=== PATIENT | female | born 1995 | race Caucasian/White ===

== ENCOUNTER 2022-01-21 14:02 | Emergency (ER) | payer OTHER ==
[2022-01-21] MEDS ORDERED: MORPHINE 4 MG/ML SYR ONE (16:02)
[2022-01-21] MEDS ORDERED: MORPHINE 2 MG/ML SYR ONE (16:02)
--- NOTE | 2022-01-21 16:58 | RAD REPORT ---
EXAM DESCRIPTION: RAD - Tib Fib Right - 01/21/2022 4:52 pm CLINICAL HISTORY: PAIN COMPARISON: No comparisons FINDINGS: External fixator device is in place. No loosening seen. No acute finding demonstrated.
--- NOTE | 2022-01-21 16:59 | RAD REPORT ---
EXAM DESCRIPTION: RAD - Foot Right 2 View - 01/21/2022 4:52 pm CLINICAL HISTORY: PAIN COMPARISON: No comparisons FINDINGS: External fixator device is noted. K-wires are present in the toes. No acute process demons trated.
--- NOTE | 2022-01-21 17:40 | EDPHYS ---
Physician Documentation [facility] Name: Rin Arce Age: 26 yrs Sex: Female : 1995 Arrival Date: 01/21/2022 Time: 14:03 Bed 9 Private MD: ED Physician Sidney Preez HPI: 01/21 14:22 This 26 yrs old Female presents to ER via Wheelchair with complaints of Wound Check - cp foot bleeding. 14:22 The patient presents with an injury, bleeding from surgical wounds of right lower leg. cp 14:22 Context: resulted from a direct blow, against knee scooter. Onset: The symptoms/episode cp began/occurred just prior to arrival. 14:22 Patient reports having surgery on right ankle and right foot yesterday [place]. Patient reports accidently striking right ankle against knee scooter and then noticing bleeding from surgical wounds. 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 - Social history:: Smoking status: Patient denies any tobacco usage or history of. Patient uses alcohol, occasionally. ROS: 14:25 Constitutional: Negative for body aches, chills, fever, poor PO intake. cp 14:25 Eyes: Negative for injury, pain, redness, and discharge. cp 14:25 Neck: Negative for pain with movement, pain at rest, stiffness. 14:25 Cardiovascular: Negative for chest pain, edema, palpitations. 14:25 Respiratory: Negative for cough, shortness of breath, wheezing. 14:25 Abdomen/GI: Negative for abdominal pain, nausea, vomiting, and diarrhea. 14:25 Back: Negative for pain at rest, pain with movement. 14:25 MS/extremity: Positive for pain, of the right ankle and right foot. 14:25 Neuro: Negative for altered mental status, dizziness, headache, numbness, weakness. 14:25 All other systems are negative. Exam: 14:30 Constitutional: The patient appears in no acute distress, alert, awake, non-toxic, well cp developed, well nourished, obese, uncomfortable. 14:30 Head/Face: Normocephalic, atraumatic. cp 14:30 Chest/axilla: Inspection: normal. 14:30 Cardiovascular: Rate: tachycardic, Rhythm: regular. 14:30 Respiratory: the patient does not display signs of respiratory distress, Respirations: normal, no use of accessory muscles, no retractions, labored breathing, is not present, Breath sounds: are clear throughout, no decreased breath sounds, no stridor, no wheezing. 14:30 Abdomen/GI: Exam negative for discomfort, distension, guarding, Inspection: abdomen appears normal. 14:30 Back: pain, is absent, ROM is normal. 14:30 Musculoskeletal/extremity: Extremities: noted in the right foot and right ankle: external fixation device in place, surgical dressing removed and surgical wounds appear with no active bleeding noted, mild swelling with signs of infection noted. 14:30 Neuro: Orientation: to person, place \T\ time. Mentation: is normal. Vital Signs: 14:14 BP 109 / 75; Pulse 113; Resp 17; Temp 98.9; Pulse Ox 100% ; Weight 108.86 kg; Height 5 ap3 ft. 9 in. (175.26 cm); 17:01 BP 109 / 71; Pulse 82; Resp 16; Pulse Ox 98% on R/A; eh3 14:14 Body Mass Index 35.44 (108.86 kg, 175.26 cm) ap3 MDM: 15:26 Patient medically screened. cp 17:37 Data reviewed: vital signs, nurses notes, radiologic studies, plain films. Test cp interpretation: by ED physician or midlevel provider: plain radiologic studies. Counseling: I had a detailed discussion with the patient and/or guardian regarding: the historical points, exam findings, and any diagnostic results supporting the discharge/admit diagnosis, radiology results, the need for outpatient follow up, surgeon, to return to the emergency department if symptoms worsen or persist or if there are any questions or concerns that arise at home. Response to treatment: the patient's symptoms have markedly improved after treatment, and as a result, I will discharge patient. 01/21 15:37 Order name: XRAY Tib Fib RIGHT; Complete Time: 17:04 cp 01/21 17:04 Interpretation: Report reviewed. 01/21 15:37 Order name: XRAY Foot RIGHT 2 View; Complete Time: 17:04 01/21 17:04 Interpretation: Report reviewed. cp 01/21 17:27 Order name: Wound dressing; Complete Time: 17:53 cp 01/21 17:27 Order name: Wyatt Wrap; Complete Time: 17:53 cp Administered Medications: 16:32 Drug: morphine 10 mg Route: IM; Site: right deltoid; ld1 17:57 Follow up: Response: No adverse reaction eh3 Disposition: 18:51 Co-signature as Attending Physician, Sidney Perez MD. rn Disposition Summary: 01/21/22 17:39 Discharge Ordered Location: Home cp Problem: new cp Symptoms: have improved cp Condition: Stable cp Diagnosis - Encounter for attention to dressings, sutures and drains cp Followup: cp - With: Private Physician - When: 1 - 2 days - Reason: Recheck today's complaints Discharge Instructions: - Discharge Summary Sheet cp - Uncontrolled Wound Bleeding cp Forms: - Medication Reconciliation Form cp - Thank You Letter cp - Antibiotic Education cp - Prescription Opioid Use cp Signatures: Dispatcher [employer] EDSidney Morrissey MD MD rn Page, Corey, PA PA cp Mishel Walsh RN RN ap3 Chapis Spaulding RN RN ld1 Nicolasa Paris 3
--- NOTE | 2022-01-21 17:40 | ER ---
Nurse's Notes [facility] Name: Rin Arce Age: 26 yrs Sex: Female : 1995 Arrival Date: 01/21/2022 Time: 14:03 Bed 9 Private MD: Diagnosis: Encounter for attention to dressings, sutures and drains Presentation: 01/21 14:14 Chief complaint: Patient states: she had surgery last night in [place] on her right foot ap3 involving external fixation devices. Patient reports that her surgeon was going to call up here to speak with a provider. Patient states she bumped into something to make her surgical area bleed. Coronavirus screen: At this time, the client does not indicate any symptoms associated with coronavirus-19. Ebola Screen: No symptoms or risks identified at this time. Initial Sepsis Screen: Does the patient meet any 2 criteria? No. Patient's initial sepsis screen is negative. Does the patient have a suspected source of infection? No. Patient's initial sepsis screen is negative. Risk Assessment: Do you want to hurt yourself or someone else? Patient reports no desire to harm self or others. Onset of symptoms was January 21, 2022. 14:14 Method Of Arrival: Wheelchair ap3 14:14 Acuity: PERRY 4 ap3 Triage Assessment: 14:16 General: Appears uncomfortable, Behavior is calm, cooperative. Pain: Complains of pain ap3 in right foot Pain began suddenly, 1 day ago. Neuro: Level of Consciousness is awake, alert, obeys commands, Oriented to person, place, time, situation. Cardiovascular: Patient's skin is warm and dry. Respiratory: Airway is patent Respiratory effort is even, unlabored, Respiratory pattern is regular, symmetrical. Derm: Wound noted right foot. Musculoskeletal: Range of motion: limited in right ankle. 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 - Social history:: Smoking status: Patient denies any tobacco usage or history of. Patient uses alcohol, occasionally. Screenin:18 Abuse screen: Denies threats or abuse. Nutritional screening: No deficits noted. ap3 Tuberculosis screening: No symptoms or risk factors identified. 17:56 Fall Risk None identified. eh3 Vital Signs: 14:14 BP 109 / 75; Pulse 113; Resp 17; Temp 98.9; Pulse Ox 100% ; Weight 108.86 kg; Height 5 ap3 ft. 9 in. (175.26 cm); 17:01 BP 109 / 71; Pulse 82; Resp 16; Pulse Ox 98% on R/A; eh3 14:14 Body Mass Index 35.44 (108.86 kg, 175.26 cm) ap3 ED Course: 14:03 Patient arrived in ED. am2 14:10 Ryland Parks PA is PHCP. cp 14:10 Sidney Perez MD is Attending Physician. cp 14:16 Triage completed. ap3 14:18 Arm band placed on right wrist. ap3 15:24 Nicolasa Paris is Primary Nurse. eh3 16:54 XRAY Tib Fib RIGHT In Process Unspecified. EDMS 16:54 XRAY Foot RIGHT 2 View In Process Unspecified. EDMS 17:56 Patient has correct armband on for positive identification. Bed in low position. Call eh3 light in reach. Side rails up X2. 17:56 No provider procedures requiring assistance completed. eh3 18:02 Patient did not have IV access during this emergency room visit. eh3 Administered Medications: 16:32 Drug: morphine 10 mg Route: IM; Site: right deltoid; ld1 17:57 Follow up: Response: No adverse reaction eh3 Medication: 17:56 VIS not applicable for this client. eh3 Outcome: 17:39 Discharge ordered by . cp 17:57 Discharged to home via wheelchair. eh3 17:57 Condition: stable 17:57 Discharge instructions given to patient, family, Instructed on discharge instructions, follow up and referral plans. 18:02 Patient left the ED. eh3 Signatures: Dispatcher [employer] EDMS Ryland Parks PA PA cp Moreno, Amanda am2 Mishel Walsh RN RN ap3 Chapis Spaulding RN RN ld1 Nicolasa Paris eh3
[2022-01-21 18:34] VITALS: TEMP 98.9
[2022-01-21 18:36] VITALS: BP 109/71; O2SAT 98
== END 2022-01-21 18:02 | disposition home or self-care (01) ==
LOC: ER 14:02
DX: Z48.01 Encounter for change or removal of surgical wound dressing (principal)
CPT/HCPCS: 73620; 73590; 96372; 99283; J2270

== ENCOUNTER 2022-04-01 12:07 | Emergency (ER) | payer SELFPAY ==
--- OUTSIDE RECORDS SUMMARY | 2022-04-01 12:10 | XMS REPORT | Continuity of Care Document ---
:1995 Author Organization [facility] t Address [address] [place] [address] Care Team Providers Name Role Phone Alton RODRIGUEZ, Key Vazquez Primary Care Physician [phone] MILTON DIETZ Attending Clinician Unavailable KEY DANG Attending Clinician Unavailable MILTON DIETZ Attending Clinician Unavailable Key Dang MD Attending Clinician [phone] Payers Payer Name Policy Type Policy Number Effective Date Expiration Date S quan [facility] [id number] 2021 00:00:00 [facility] 3 [id number] 2021 00:00:00 Problems Condition Condition Condition Status Onset Resolution Last Treating Co mments Source Name Details Category Date Date Treatment Clinician Date No known No known Disease [place] active active Health problems problems Allergies, Adverse Reactions, Alerts This patient has no known allergies or adverse reactions. Social History Social Habit Start Date Stop Date Quantity Comments Source History [facility] Health Alcohol Frequency History [facility] Alcohol Std Drinks History [facility] Alcohol Binge History of tobacco Cigarette Smoker [facility] use Exposure to 2022-03-02 2022-03-12 Not sure [facility] SARS-CoV-2 (event) 00:00:00 10:09:00 Alcohol intake 2022-03-12 2022-03-12 0 /d [facility] 00:00:00 00:00:00 Tobacco use and 2021-12-11 2021-12-11 Smokeless tobacco [facility] exposure 00:00:00 00:00:00 non-user Alcohol Comment 2021-12-11 2021-12-11 Social drinker [facility] 00:00:00 00:00:00 only Cigarette 2021-12-11 2021-12-11 [facility] pack-years 00:00:00 00:00:00 Sex Ass[birth year] At [birth year] Jacquie Valencia ybold 00:00:00 00:00:00 Smoking Status Start Date Stop Date Source Never smoked tobacco [facility] Medications Ordered Filled Start Stop Current Ordering Indication Dosage Frequency Signature Comments Components Source Medication Medication Date Date Medication? Clinician (SIG) Name Name fluconazole 2021- Yes [id number] 150mg Take 1 [facility] (Diflucan) 03-12 9107 tablet Health 150 MG 00:00: 04:59 (150 mg tablet 00 :00 total) by mouth 1 (one) time for 1 dose. cephalexin 2021- Yes [id number] 500mg Q6H Take 1 [facility] (Keflex) 03-05 9107 capsule Health 500 MG 00:00: 04:59 (500 mg capsule 00 :00 total) by mouth every 6 (six) hours for 14 days. No known No No known [facility] 8-17 medication He alth 13:12: s 13 No known 0 No No known [facility] 8-10 medication He alth 08:57: s 50 No known 2021-0 No No known [facility] 7-27 medication He alth 10:12: s 08 No known 0 No No known [facility] 7-20 medication He alth 13:28: s 43 Calcium Yes Jacquie Carb-Cholec 5-26 Seybold alciferol 09:26: (CALCIUM 44 1000 + D OR) Cetirizine Yes 10mg Take 10 mg K elsey 10 MG oral 5-26 by mouth Seybo ld Tablet 09:26: nightly 44 Esomeprazol Yes 20mg Take 20 mg Jacquie e Magnesium 5-26 by mouth Seyb old 20 MG oral 09:26: every Delayed 44 morning Release (before Capsule breakfast) Ketoconazol 2022-0 Yes QD Apply 1 Candido sey e 2 % apply 5-26 applicatio Se ybold externally 09:26: n Cream 44 topically daily as needed Multiple Yes 1{tbl} Take 1 Kelse y Vitamins-Mi 5-26 tablet by Sey bold nerals 09:26: mouth (Thera-M) 44 daily oral Tablet Propranolol Yes 10mg Take 10 mg Jacquie HCl 10 MG 5-26 by mouth 3 Seyb old oral Tablet 09:26: times 44 daily Turmeric Yes 500mg Take 500 Munira ey Curcumin 5-26 mg by Seybold 500 MG oral 09:26: mouth Capsule 44 daily Albuterol Yes 2{puff} Inhale 2 K elsey HFA 108 (90 5-26 puffs into Se ybold Base) 09:26: the lungs MCG/ACT IN 44 AERS B Yes Jacquie COMPLEX-BIO 5-26 Seybold TIN-FA ER 09:26: OR 44 busPIRone Yes 10mg Take 10 mg Ke lsey HCl 10 MG 5-24 by mouth Seybol d oral Tablet 00:00: in the 00 morning and 10 mg in the evening. Duloxetine Yes 60mg Take 60 mg K elsey HCl 60 MG 5-24 by mouth Seybol d oral Cap DR 00:00: daily Particles 00 Nortriptyli Yes Take 1 tab Jacquie ne HCl 10 3-07 nightly Seybold MG oral 00:00: for 1 Capsule 00 week, then 2 tabs nightly for one week, then 3 tabs nightly Gabapentin Yes 600mg Take 600 Ke lsey 300 MG oral 2-09 mg by Seybold Capsule 00:00: mouth 00 nightly Sumatriptan Yes 100mg Take 100 K elsey Succinate 8-31 mg by Seybold 100 MG oral 00:00: mouth once Tablet 00 as needed Immunizations Ordered Immunization Filled Immunization Date Status Commen ts Source Name Name Covid-19 Vaccine 2020-10-15 Completed Jacquie almonte Moderna (Spikevax), 00:00:00 Mrna-lnp, Josue Protein, Pf Tdap- (Boostrix, 2017-09-28 Completed Jacquie almonte Adacel) 00:00:00 Vital Signs Vital Name Observation Time Observation Value Comments Source Body height 2021-12-11 15:15:00 177.8 cm [facility] Body weight 2021-12-11 15:15:00 113.399 [facility] BMI 2021-12-11 15:15:00 35.87 kg/m2 [facility] Systolic blood pressure 2021-12-05 14:32:00 84 mm[Hg] Jacquie Seybold Diastolic blood 2021-12-05 14:32:00 48 mm[Hg] Kelse y Seybold pressure Heart rate 2021-12-05 14:18:00 103 /min Jacquie paulabodee Body temperature 2021-12-05 14:18:00 35.56 Yahaira Munira ey Seybold Respiratory rate 2021-12-05 14:18:00 14 /min Munira paula Seybold Body height 2021-12-05 14:18:00 175.3 cm Jacquie paulabodee Body weight 2021-12-05 14:18:00 108.863 kg Jacquie paulabodee BMI 2021-12-05 14:18:00 35.44 kg/m2 Jacquie paulabodee Procedures Procedure Date / Time Performed Performing Clinician Sour e CAST APPLICATION 2022-03-12 21:48:17 Maurice Chairez [facility] Encounters Start End Encounter Admission Attending Care Care Encounter Source Date/Time Date/Time Type Type Clinicians Facility Department ID 2022-03-[address] [facility] [id number] [place] 12:14:47 [id number] [facility] 2022-02-[address] [facility] [id number] [place] 09:00:08 [id number] [facility] 2022-02-[address] [facility] [id number] [place] 11:09:26 [id number] [facility] 2022-02-[address] [facility] [id number] [place] 14:25:43 [id number] [facility] 2022-02-[address] [facility] [id number] [place] 09:45:35 [id number] [facility] 2022-02-[address] [facility] [id number] [place] 01:04:44 [id number] [facility] 2022-01-29 [id number] [place] 13:18:36 [place] [id number] [facility] 2022-01-28 Outpatient SHAWANDA [facility] [id number] [place] 08:31:15 MILTON [id number] [facility] 2022-01-[address] [facility] [id number] [place] 15:28:48 [id number] [facility] 2022-01-07 Outpatient SHAWANDA, [facility] [id number] [place] 16:15:16 MILTON [id number] [facility] 2021-12-[address] [facility] [id number] [place] 09:44:39 [id number] [facility] 2021-12-[address] [facility] [id number] [place] 01:05:44 [id number] [facility] 2021-12-[address] [facility] [id number] [place] 13:52:05 [id number] [facility] 2021-12-11 Outpatient SHAWANDA, [facility] [id number] [place] 09:20:25 MILTON [id number] [facility] 2021-12-[address] [facility] [id number] [place] 16:53:59 [id number] [facility] 2021-12-04 Outpatient SHAWANDA [facility] [id number] 09:02:11 MILTON [id number] [facility] 2021-12-[address] [facility] [id number] [place] 14:13:50 [id number] [facility] 2021-11-27 Outpatient SHAWANDA [facility] [id number] [place] 14:02:24 MILTON [id number] [facility] 2022-04-09 2022-04-09 Outpatient SHAWANDA [facility] [id number] [place] 14:15:00 14:15:00 MILTON [facility] 2022-03-12 2022-03-12 Office Shawanda [facility] [id number] [place] 10:15:00 12:13:43 Visit [place] PHYSICIAN [id number] [facility] [id number] [facility] [id number] CS - RAMONITA 1 2022-03-12 2022-03-[address] [facility] [id number] [place] 10:15:00 10:15:00 [facility] 2022-03-05 2022-03-05 Outpatient SHAWANDA [facility] [id number] [place] 07:00:00 07:00:00 [facility] 2022-02-26 2022-02-26 Office JOHN Dietz [id number] [place] 13:15:00 13:51:37 Visit [place] PHYSICIAN [id number] Health S [id number] [facility] [id number] CS - RAMONITA 1 2022-02-26 2022-02-[address] [facility] [id number] [place] 13:15:00 13:15:00 Health 2022-02-19 2022-02-19 Office JOHN Dietz [id number] [place] 09:00:00 10:30:59 Visit [place] PHYSICIAN [id number] Health S [id number] [facility] [id number] CS - RAMONITA 1 2022-02-19 2022-02-[address] [facility] [id number] [place] 00:00:00 00:00:00 Health 2022-02-05 2022-02-05 Office JOHN Dietz [id number] [place] 10:30:00 10:39:57 Visit [place] PHYSICIAN [id number] Health S [id number] ORTH[facility]EDI [id number] CS - RAMONITA 1 2022-02-05 2022-02-[address] [facility] [id number] [place] 10:30:00 10:30:00 Health 2022-01-29 2022-01-29 Office JOHN Dietz [id number] [place] 13:45:00 15:25:00 Visit [place] PHYSICIAN [id number] Health S [id number] ORTH[facility]EDI [id number] CS - RAMONITA 1 2022-01-22 2022-01-22 Outpatient JACQUIE DANG [id number] Jacquie 00:00:00 00:00:00 [facility] [place] 2022-01-20 2022-01-20 Outpatient SHAILA DIETZ [id number] [facility] 10:44:00 22:00:00 [place] 2021-12-30 2021-12-30 Outpatient JACQUIE DANG [id number] Jacquie 00:00:00 00:00:00 [facility] [place] 2021-12-17 2021-12-17 Outpatient JACQUIE DANG [id number] Jacquie 00:00:00 00:00:00 [facility] 2021-12-11 2021-12-11 Office JOHN Dietz [id number] [place] 10:00:00 11:55:01 Visit [place] FELDMAN [id number] Health S [id number] [facility]TH[facility]EDI [id number] RAQUEL SHIPMAN 1 2021-12-05 2021-12-05 Office Doc Dang [id number] Jacquie 09:30:00 10:00:00 Visit Key Thao [id number] Se tuyet Vazquez [id number] 2021-12-05 2021-12-05 Outpatient JACQUIE DANG [id number] Jacquie 00:00:00 00:00:00 [facility] [place] 2021-12-05 2021-12-05 Outpatient JACQUIE DANG [id number] Jacquie 00:00:00 00:00:00 [facility] [place] Results This patient has no known results.
[2022-04-01 13:17] LABS: Absolute Lymphocytes (CBC) 1.9 K/uL (0.7-4.9); Hematocrit 43.9 % (36.0-45.0); MCV 84.9 fL (80-100); MPV 7.9 fL (7.6-11.3); RBC Red Blood Cell Count 5.17 M/uL (3.86-4.86)
[2022-04-01 13:37] LABS: Troponin High Sensitivity 4.3 pg/mL (<58.9)
--- NOTE | 2022-04-01 15:37 | RAD REPORT ---
EXAM DESCRIPTION: Leticia Single View04/01/2022 2:59 pm CLINICAL HISTORY: Chest pain COMPARISON: none FINDINGS: Postsurgical changes involve the spine The lungs appear clear of acute infiltrate. The heart is normal size IMPRESSION: No acute abnormalities displayed
[2022-04-01 15:39] LABS: Thyroid Stimulating Hormone 3.79 uIU/mL (0.360-3.740)
[2022-04-01] MEDS ORDERED: NA CHLORIDE 0.9% 1,000 ML ONE (16:16)
--- NOTE | 2022-04-01 18:00 | RAD REPORT ---
EXAM DESCRIPTION: CT - Chest For Pe Angio - 04/01/2022 5:41 pm CLINICAL HISTORY: Chest pain COMPARISON: None. TECHNIQUE: Dynamically enhanced axial 3 mm thick images of the chest were obtained during administra tion of <100> mL Isovue 370 IV contrast. Coronal and oblique reconstruction images were generated and reviewed. Exam utilizes a protocol for optimal evaluation of pulmonary arterial tree. Maximum intensity projections 3D imaging was utilized All CT scans are performed using dose optimization technique as appropriate and may include automated exposure control or mA/KV adjustment according to patient size. FINDINGS: A pulmonary embolus is not seen. A thoracic aortic aneurysm is not noted. A pleural effusion is not seen. A pericardial effusion is not seen. A lung consolidation is not present. Ivan rods within the thoracic spine. This does result in some artifact. IMPRESSION: Negative for a pulmonary embolism.
--- NOTE | 2022-04-01 18:23 | ER ---
Nurse's Notes [facility] Name: Rin Arce Age: 27 yrs Sex: Female : 1995 Arrival Date: 04/01/2022 Time: 12:08 Bed 9 Private MD: Diagnosis: Chest pain, unspecified;Tachycardia, unspecified;Transient hypotension, resolved Presentation: 04/01 12:53 Chief complaint: Patient states: i can feel my hearate rate all over the place, and my 5 chest hurts. I have a high heart rate, I take propanolol for it, but this is worse. Coronavirus screen: Vaccine status: Patient reports receiving the 2nd dose of the covid vaccine. Client denies travel out of the [place] in the last 14 days. Ebola Screen: Patient negative for fever greater than or equal to 101.5 degrees Fahrenheit, and additional compatible Ebola Virus Disease symptoms Patient denies exposure to infectious person. Patient denies travel to an Ebola-affected area in the 21 days before illness onset. Initial Sepsis Screen: Does the patient meet any 2 criteria? No. Patient's initial sepsis screen is negative. Does the patient have a suspected source of infection? No. Patient's initial sepsis screen is negative. Risk Assessment: Do you want to hurt yourself or someone else? Patient reports no desire to harm self or others. Onset of symptoms was April 01, 2022. 12:53 Method Of Arrival: Ambulatory [facility] 12:53 Acuity: PERRY 3 jh5 Triage Assessment: 12:57 General: Appears in no apparent distress. comfortable, obese, well groomed, well [facility] developed, Behavior is calm, cooperative, appropriate for age. Pain: Complains of pain in chest. Cardiovascular: Reports chest pain. 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 - Social history:: Smoking status: Patient denies any tobacco usage or history of. Screenin:08 Abuse screen: Denies threats or abuse. Denies injuries from another. Nutritional [facility] screening: No deficits noted. Tuberculosis screening: No symptoms or risk factors identified. Fall Risk None identified. Assessment: 16:21 Reassessment: Patient and/or family updated on plan of care and expected duration. Pain ap3 level reassessed. Patient is alert, oriented x 3, equal unlabored respirations, skin warm/dry/pink. General: Appears in no apparent distress. Pain: Complains of pain in chest Pain does not radiate. Pain: Pain began 1030 this morning. Neuro: Level of Consciousness is awake, alert, obeys commands, Oriented to person, place, time, situation. Cardiovascular: Patient's skin is warm and dry. Cardiovascular: Reports chest pain, Denies shortness of breath. Respiratory: Airway is patent Respiratory effort is even, unlabored, Respiratory pattern is regular, symmetrical. Vital Signs: 12:53 BP 113 / 83; Pulse 109; Resp 18; Temp 98.3; Pulse Ox 99% ; Weight 108.86 kg; Height 5 5 ft. 9 in. (175.26 cm); Pain 6/10; 16:22 Pulse 87; ap3 16:22 BP 86 / 72; Pulse 88; Resp 19; Pulse Ox 100% on R/A; ap3 18:16 BP 111 / 64; Pulse 82; Pulse Ox 100% on R/A; ap3 12:53 Body Mass Index 35.44 (108.86 kg, 175.26 cm) 5 ED Course: 12:08 Patient arrived in ED. rg4 12:57 Triage completed. jh5 12:57 Arm band placed on right wrist. jh5 12:59 Shadia Yusuf MD is Attending Physician. sd2 13:05 Inserted saline lock: 20 gauge in right antecubital area, using aseptic technique. 5 Blood collected. 13:06 Basic Metabolic Panel Sent. jh5 13:06 CBC with Diff Sent. jh5 13:06 Troponin HS Sent. jh5 13:08 Patient has correct armband on for positive identification. Client placed on continuous 5 cardiac and pulse oximetry monitoring. NIBP monitoring applied. 13:08 No provider procedures requiring assistance completed. Patient maintains SpO2 5 saturation greater than 95% on room air. 14:53 Mishel Walsh, JACINTO is Primary Nurse. ap3 15:00 D-Dimer Sent. ss 15:00 T4 Free Sent. ss 15:00 TSH Sent. ss 15:01 XRAY Chest (1 view) In Process Unspecified. EDMS 17:43 CT Chest For PE Angio In Process Unspecified. EDMS 18:21 Myke Mata MD is Referral Physician. sd2 18:33 IV discontinued, intact, bleeding controlled, No redness/swelling at site. Pressure ap3 dressing applied. Administered Medications: 16:11 Drug: NS 0.9% 1000 ml Route: IV; Rate: 1 bolus; Site: right antecubital; ap3 17:55 Follow up: IV Status: Completed infusion; IV Intake: 1000ml ap3 Medication: 16:21 VIS not applicable for this client. ap3 Intake: 17:55 IV: 1000ml; Total: 1000ml. ap3 Outcome: 18:22 Discharge ordered by MD. sd2 18:33 Discharged to home ambulatory. ap3 18:33 Condition: good 18:33 Discharge instructions given to patient, family, Instructed on discharge instructions, follow up and referral plans. Demonstrated understanding of instructions, follow-up care. 18:33 Patient left the ED. ap3 Signatures: Dispatcher [employer] EDMA Cherie Oquendo, RN Connie Flores rg4 Mishel Walsh RN RN ap3 Ruma Salgado RN RN jh5 Shadia Yusuf MD MD sd2
--- NOTE | 2022-04-01 18:24 | EDPHYS ---
Physician Documentation [facility] Name: Rin Arce Age: 27 yrs Sex: Female : 1995 Arrival Date: 04/01/2022 Time: 12:08 Bed 9 Private MD: ED Physician Shadia Yusuf HPI: 04/01 13:14 This 27 yrs old Female presents to ER via Ambulatory with complaints of Palpitations, sd2 Chest Pain. 13:14 27-year-old female presents with chief complaint of chest pain that started today. She sd2 reports a history of tachycardia but she is currently on propanolol twice daily for. She reports her baseline heart rate is around 120 normally. She reports her heart rate today as fluctuated up to 150 when she was checking it at home. Her chest pain is nonradiating with some mild shortness of breath. She has not had any nausea, vomiting or diaphoresis. She reports she was supposed to be seen by a assistant center director for her tachycardia but lost her insurance and has not been able to follow-up. She did also recently have a foot surgery in December or January that has been up and active since then. She does have a history of blood clots in her jugular vein following prior surgeries.. 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 - Social history:: Smoking status: Patient denies any tobacco usage or history of. ROS: 13:14 Constitutional: Negative for fever, chills, and weight loss, Eyes: Negative for injury, sd2 pain, redness, and discharge. 13:14 Abdomen/GI: Negative for abdominal pain, nausea, vomiting, diarrhea. MS/Extremity: Negative for injury and deformity, Skin: Negative for injury, rash, and discoloration, Neuro: Negative for headache, numbness and tingling. 13:14 Cardiovascular: Positive for chest pain, palpitations, Negative for edema, orthopnea. 13:14 Respiratory: Positive for shortness of breath, Negative for cough, hemoptysis, wheezing. Exam: 13:14 Constitutional: This is a well developed, well nourished patient who is awake, alert, sd2 and in no acute distress. Head/Face: Normocephalic, atraumatic. Eyes: EOMI, normal conjunctiva bilaterally Chest/axilla: Normal chest wall appearance and motion. Nontender with no deformity. Cardiovascular: Tachycardic rate and regular rhythm with a normal S1 and S2. No gallops, murmurs, or rubs. 2+ distal pulses. Respiratory: Lungs have equal breath sounds bilaterally, clear to auscultation and percussion. No rales, rhonchi or wheezes noted. No increased work of breathing, no retractions or nasal flaring. Abdomen/GI: Soft, non-tender, with normal bowel sounds. No guarding or rebound. No evidence of tenderness throughout. Skin: Warm, dry with normal turgor. Normal color with no rashes, no lesions, and no evidence of cellulitis. MS/ Extremity: Pulses equal, no cyanosis. Neurovascular intact. Full, normal range of motion. R foot in walking boot with cast in place Psych: Awake, alert, with orientation to person, place and time. Behavior, mood, and affect are within normal limits. 13:14 ECG was reviewed by the Attending Physician. Sinus tachycardia, rate 111, no STEMI sd2 criteria or ST-T wave changes Vital Signs: 12:53 BP 113 / 83; Pulse 109; Resp 18; Temp 98.3; Pulse Ox 99% ; Weight 108.86 kg; Height 5 5 ft. 9 in. (175.26 cm); Pain 6/10; 16:22 Pulse 87; ap3 16:22 BP 86 / 72; Pulse 88; Resp 19; Pulse Ox 100% on R/A; ap3 18:16 BP 111 / 64; Pulse 82; Pulse Ox 100% on R/A; ap3 12:53 Body Mass Index 35.44 (108.86 kg, 175.26 cm) [facility] MDM: 13:14 Differential diagnosis: Differential diagnosis includes but is not limited to: ACS, sd2 DVT/PE, pneumothorax, dissection, musculoskeletal, anxiety, anemia, electrolyte abnormality, pneumonia, CHF, COPD among others. Data reviewed: vital signs, nurses notes. 14:58 Patient medically screened. sd2 18:19 Data reviewed: lab test result(s), EKG, radiologic studies. Counseling: I had a sd2 detailed discussion with the patient and/or guardian regarding: the historical points, exam findings, and any diagnostic results supporting the discharge/admit diagnosis, lab results, radiology results, the need for outpatient follow up, to return to the emergency department if symptoms worsen or persist or if there are any questions or concerns that arise at home. Medical screen evaluation completed. [facility] emergency medical condition absent. ED course: Labs and imaging reviewed. Labs grossly WNCL aside from elevated D-dimer. Trop neg. EKG with no ischemic changes. CXR with no acute process. CTA negative for PE. Pt did have borderline blood pressures improved with IVFs that have remained stable and HR has remained stable in the 80s with no events on telemetry or evidence of arrhythmia. Pt advised of all results and is comfortable with plan for discharge with PCP and Cardiology follow up as she was previously referred. They are in the process of moving to [place] but will call Dr. Mata's office where they were previously referred to see if there is a self-pay option. She verbalizes understanding of discharge plan and strict return precautions at this time. . 04/01 13:02 Order name: Basic Metabolic Panel; Complete Time: 13:59 [facility] 04/01 13:02 Order name: CBC with Diff; Complete Time: 13:59 [facility] 04/01 13:02 Order name: Troponin HS; Complete Time: 13:59 [facility] 04/01 13:14 Order name: TSH; Complete Time: 15:46 [facility] 04/01 13:14 Order name: T4 Free; Complete Time: 15:46 [facility] 04/01 13:14 Order name: D-Dimer; Complete Time: 15:51 [facility] 04/01 13:02 Order name: XRAY Chest (1 view); Complete Time: 15:46 [facility] 04/01 13:02 Order name: EKG; Complete Time: 13:02 [facility] 04/01 13:02 Order name: Cardiac monitoring; Complete Time: 16:11 [facility] 04/01 13:02 Order name: EKG - Nurse/Tech; Complete Time: 13:02 [facility] 04/01 13:02 Order name: IV Saline Lock; Complete Time: 13:05 [facility] 04/01 13:02 Order name: Labs collected and sent; Complete Time: 13:06 [facility] 04/01 15:53 Order name: CT Chest For PE Angio; Complete Time: 18:10 [facility] 04/01 13:02 Order name: O2 Per Protocol; Complete Time: 16:11 jh5 04/01 13:02 Order name: O2 Sat Monitoring; Complete Time: 16:11 5 Administered Medications: 16:11 Drug: NS 0.9% 1000 ml Route: IV; Rate: 1 bolus; Site: right antecubital; ap3 17:55 Follow up: IV Status: Completed infusion; IV Intake: 1000ml ap3 Disposition Summary: 04/01/22 18:22 Discharge Ordered Location: Home sd2 Problem: an acute exacerbation sd2 Symptoms: have improved sd2 Condition: Stable sd2 Diagnosis - Chest pain, unspecified sd2 - Tachycardia, unspecified sd2 - Transient hypotension, resolved sd2 Followup: sd2 - With: Private Physician - When: 2 - 3 days - Reason: Recheck today's complaints, Continuance of care, Re-evaluation by your physician Followup: sd2 - With: Myke Mata MD - When: 2 - 3 days - Reason: Recheck today's complaints, Continuance of care Discharge Instructions: - Discharge Summary Sheet sd2 - Nonspecific Chest Pain, Adult sd2 - Sinus Tachycardia sd2 Forms: - Medication Reconciliation Form sd2 - Thank You Letter sd2 - Antibiotic Education sd2 - Prescription Opioid Use sd2 Signatures: Dispatcher [employer] Mishel Minor RN RN ap3 Ruma Salgado RN RN jh5 Shadia Yusuf MD MD sd2
--- NOTE | 2022-04-02 06:32 | EKG ---
Test Date: 2022-04-01 Test Time: 13:05:27 Police Clerk: MYNOR MEASUREMENT RESULTS: Intervals: Rate: 111 ID: [id number] QRSD: 80 QT: 312 QTc: 424 [place]: P: 64 ID: [id number] QRS: 55 T: 19 INTERPRETIVE STATEMENTS: Sinus tachycardia Otherwise normal ECG No previous ECG available for comparison Electronically Signed On 04-02-22 06:31:15 CDT by Myke Mata
[2022-04-02 21:30] VITALS: BP 113/83; TEMP 98.3; O2SAT 99
== END 2022-04-01 18:33 | disposition home or self-care (01) ==
LOC: ER 12:07
DX: R07.9 Chest pain, unspecified (principal); R00.0 Tachycardia, unspecified
CPT/HCPCS: 36415; 71045; 71275; 80048; 84439; 84443; 84484; 85025; 85379; 93005; 96360; 96361; 99284; J7030; Q9967